=== PATIENT | female | born 1960 | race Caucasian/White ===

== ENCOUNTER 2019-12-05 05:16 | Emergency (ER) | payer MEDICAID ==
[~2019-12-05] VITALS: Ht 160 cm; Wt 72.0 kg
[2019-12-05 05:57] VITALS: BP 139/84
[2019-12-05] MEDS ORDERED: IBUPROFEN 200MG TABLET ONE (06:03)
[2019-12-05] MEDS ORDERED: ALBUTEROL (0.083%) 2.5MG/3ML NEB HHN STA (07:17)
[2019-12-05] MEDS ORDERED: IPRATROPIUM BROMIDE (0.02%) 0.5MG/2.5ML NEB HHN STA (07:17)
[2019-12-05] MEDS ORDERED: PREDNISONE 20MG TABLET PO STA (07:17)
[2019-12-05] MEDS ORDERED: IBUPROFEN 600MG TABLET PO ONE (07:30)
== END 2019-12-05 07:57 | disposition left against medical advice (07) ==
LOC: ER 05:16
DX: J06.9 Acute upper respiratory infection, unspecified (principal); J45.901 Unspecified asthma with (acute) exacerbation; I10 Essential (primary) hypertension
CPT/HCPCS: 99284